=== PATIENT | male | born 1955 | race Caucasian/White ===

== ENCOUNTER 2023-07-17 07:38 | Emergency (ER) | payer SELFPAY ==
[2023-07-17 07:45] VITALS: BP 147/77; PULSE 56; RESP 18; TEMP 36.8; O2SAT 99; BMI 23.1
[2023-07-17] MEDS: BACITRACIN OINT 0.9 GM PCKT 1 APPLIC TOP (07:50)
--- NOTE | 2023-07-17 07:51 | ED.SKABFB ---
HPI - Skin/Abscess/Foreign Bdy General Chief complaint: Skin/Abscess/Foreign Body Stated complaint: sliver stuck in arm per pt Time Seen by Provider: 07/17/23 07:43 Source: patient Mode of arrival: Ambulatory Limitations: no limitations History of Present Illness HPI narrative: 68-year-old male here for evaluation of a piece of wood that is stuck in the palm of his right hand. He states he was working with some wood last evening. And a piece of the would get stuck in his hand. Attempted multiple times to remove it last evening but has been unable to. Review of Systems Constitutional Constitutional: Reports system reviewed and no additional complaints, except as documented Musculoskeletal Musculoskeletal: Reports system reviewed and no additional complaints, except as documented Integumentary/Breasts Skin/Breast: Reports system reviewed and no additional complaints, except as documented Patient History Social History Smoking Status: Unknown if ever smoked Smoking Status: Unknown if ever smoked alcohol intake frequency: other Substance Use Type: does not use Exam Initial Vital Signs Initial Vital Signs: Vital Signs Temperature 98.3 F 07/17/23 07:45 Pulse Rate 56 L 07/17/23 07:45 Respiratory Rate 18 07/17/23 07:45 Blood Pressure 147/77 H 07/17/23 07:45 Pulse Oximetry 99 07/17/23 07:45 Oxygen Delivery Method Room Air 07/17/23 07:45 Skin Other: There was a small puncture wound in the skin on the thenar eminence of the right hand. There was a foreign body felt under the skin. Procedures Foreign Body OTHER Foreign Body Removal Site: right and hand Description of foreign body: other (Would) Technique: manual removal Confirmed by:: direct visualization Course Orders Ordered: Discontinued Medications Bacitracin (Bacitracin Oint 0.9 Gm Pckt) 1 applic TOP NOW ONE Stop: 07/17/23 07:52 Vital Signs Vital signs: Vital Signs - 8 hr 07/17/23 07:45 Temperature 98.3 F Pulse Rate 56 L Respiratory Rate 18 Blood Pressure 147/77 H Pulse Oximetry 99 Oxygen Delivery Method Room Air MDM - Skin/Abscess/Foreign Bdy MDM Narrative Medical decision making narrative: A small area of the skin was numbed with lidocaine and a 2 cm piece of wood was removed without incident. The patient washed the wound. There was no signs of infection. Wheeze topical antibiotics. Patient was discharged home with return precautions. Discharge Plan Departure Patient Disposition: Home Clinical Impression: Foreign body in hand Activity Restrictions/Additional Instructions: Can wash your hands like normal. You can put topical antibiotic ointment over the area. Contact your primary doctor for a follow-up. Return to the emergency department for new symptoms. Stand Alone Forms: Patient Portal/API
== END 2023-07-17 07:58 | disposition home or self-care (01) ==
PROVIDERS: Emergency Provider Emergency Medicine
DX: S60.551A Superficial foreign body of right hand, initial encounter (principal)
CPT/HCPCS: 99282

== ENCOUNTER 2024-07-15 13:38 | Inpatient (IN) | payer BC, SELFPAY ==
[2024-07-15] VITALS (12 sets, daily range): BP systolic 160–206; BP diastolic 76–98; PULSE 53–82; RESP 16–17; TEMP 36.7–36.9; O2SAT 98–100; BMI 22.4
[2024-07-15 14:23] LABS: Add Manual Diff / Slide Review NO; Basophils Absolute Auto 100 /uL (0-100); Basophils Percent Auto 0.7 % (0-2); Eosinophils Absolute Auto 200 /uL (0-450); Eosinophils Percent Auto 2.8 % (2-4); Hematocrit 27.3 % (41-53); Hemoglobin 9.4 g/dL (13.5-17.5); Lymphocytes Absolute Auto 1400 /uL (1100-4500); Lymphocytes Percent Auto 17.3 % (25-40); Mean Corpuscular HGB Conc 34.5 % (30-36); Mean Corpuscular Hemoglobin 29.1 PG (26-34); Mean Corpuscular Volume 84.1 fL (80-100); Monocytes Absolute Auto 600 /uL (0-900); Monocytes Percent Auto 6.9 % (3-14); Neutrophils Absolute Auto 5800 /uL (1500-7000); Neutrophils Percent Auto 72.3 % (50-75); Platelet Count 165 X10^3/uL (150-400); Red Blood Cell Count 3.24 X10^6/uL (4.5-5.9); Red Cell Distribution Width 14.2 % (11.6-14.8); White Blood Cell Count 8.1 X10^3/uL (4.5-11.0)
[2024-07-15 14:34] LABS: Alanine Aminotransferase 19 IU/L (<50); Albumin 4.2 g/dL (3.5-5.0); Albumin Globulin Ratio 1.8 (1.0-2.8); Alkaline Phosphatase 38 U/L (38-126); Aspartate Aminotransferase 21 IU/L (17-59); BUN Creatinine Ratio 13.1 (6-22); Bilirubin Total 0.5 mg/dL (0.2-1.3); Blood Urea Nitrogen 54 mg/dL (9-20); Carbon Dioxide 26 mmol/L (22-32); Chloride 106 mmol/L (98-107); Estimated Glomerular Filt Rate 15 mL/min (>60); Globulin 2.3 g/dL (1.7-4.1); Glucose 118 mg/dL (70-99); HEMOLYSIS < 15 (0-50); Lipase 153 U/L (23-300); Potassium 4.2 mmol/L (3.4-5.1); Sodium 142 mmol/L (137-145); Total Protein 6.5 g/dL (6.3-8.2)
--- NOTE | 2024-07-15 16:19 | DI.US.S_ITS ---
PROCEDURE: US RENAL COMPLETE INDICATIONS: renal failure TECHNIQUE: Real-time scanning was performed of the kidneys and bladder, with image documentation. COMPARISON: None. FINDINGS: Kidneys: Kidneys are enlarged. Right kidney measures 13.0 cm long; left kidney measures 13.8 cm long. Bilateral renal cortical thinning. 7 mm on the right and 8 mm on the left. There is severe bilateral hydronephrosis. No intrarenal calculi. Bladder: Pre-void bladder volume is 852 mL. Post-void residual is 833 mL. Pre-void images demonstrate no intraluminal masses or stones. On pre-void images, neither ureteral jets are noted with color Doppler interrogation. (Of note, ureteral jets may not be detectable in up to 25% of cases due to insufficient differences in specific gravity between ureteral and bladder urine). Miscellaneous: No free pelvic fluid. The prostate gland measures 3.7 x 4.0 x 4.1 cm and median lobe hypertrophy likely protrudes into the bladder. Bladder mass is felt less likely but not excluded. IMPRESSION: Severe bilateral hydronephrosis, probably due to bladder outlet obstruction. Cross-sectional imaging of the urinary bladder and prostate and may be helpful. Dictated by: Monserrat Romano M.D. on 07/15/2024 at 17:27 Approved by: Monserrat Romano M.D. on 07/15/2024 at 17:30
[2024-07-15 16:42] LABS: Appearance Urine UA CLEAR; Bilirubin Urine UA NEGATIVE (NEGATIVE); Color Urine UA YELLOW; Glucose Urine UA NEGATIVE (Negative); Ketones Urine UA NEGATIVE (NEGATIVE); Leukocyte Esterase Urine UA NEGATIVE (NEGATIVE); Nitrite Urine UA NEGATIVE (Negative); Occult Blood Urine UA NEGATIVE (Negative); Protein Urine UA NEGATIVE (Negative); Specific Gravity Urine UA 1.015 (1.000-1.035); Urobilinogen Urine UA 0.2 E.U./dL (0.2); pH Urine UA 5.5 (4.5-8.0)
--- NOTE | 2024-07-15 16:46 | ED.RECABL ---
HPI - Recheck/Abnormal Lab/Rx General Chief Complaint: Recheck/Abnormal Lab/Rx Stated Complaint: Sent from [facility] results alarming Time Seen by Provider: 07/15/24 16:19 Source: patient Mode of arrival: Ambulatory History of Present Illness HPI narrative: Patient is a 69-year-old male presenting today with abnormal labs. He reports that he went to his primary care provider because he was having some sudden urinary incontinence. He has no abdominal pain no nausea no back pain. He does not really take any medications over the counter he does take an Excedrin for an occasional migraine that has been going on for about a month and a half but not taking it daily and not taking it multiple times a day. He avoids NSAIDs. Really he has absolutely no complaints. Related Data Home Medications Medication Instructions Recorded Confirmed No Known Home Medications 07/15/24 07/15/24 Allergies Allergy/AdvReac Type Severity Reaction Status Date / Time No Known Drug Allergies Allergy Verified 07/15/24 13:58 Patient History Smoking Status: Never smoker alcohol intake frequency: other Exam Initial Vital Signs Initial Vital Signs: Vital Signs Temperature 98.5 F 07/15/24 13:53 Pulse Rate 75 07/15/24 13:53 Respiratory Rate 17 07/15/24 13:53 Blood Pressure 206/98 H 07/15/24 13:53 Pulse Oximetry 99 07/15/24 13:53 Oxygen Delivery Method Room Air 07/15/24 13:53 GENERAL: Well-appearing, well-nourished and in no acute distress. HEENT: Head atraumatic,EOMI, pupils reactive, face symmetric, moist mucous membranes CARDIOVASCULAR: Regular rate and rhythm without murmurs, rubs or gallops. RESPIRATORY: Breath sounds equal bilaterally, no wheezes rales or rhonchi. ABDOMEN: Soft, no suprapubic pain no guarding no rebound : No CVA tenderness EXTREMITIES: Normal range of motion, no clubbing or edema. Neurovascularly intact NEUROLOGICAL: Alert and oriented x4.Normal gait and speech. Cranial nerves II through XII grossly intact. SKIN: Warm, dry, no laceration, no petechiae, no rashes or lesions. Course Orders Ordered: ED Orders 07/15/24 14:15 Complete Blood Count AUTO DIFF Stat Comprehensive Metabolic Panel Stat Lipase Stat Protein Creatinine Ratio Urine Stat Sodium Urine Random Stat UA Complete [Urinalysis and Microscopic] Stat 07/15/24 16:19 US renal complete Stat 07/15/24 19:00 BMP [Basic Metabolic Panel] Stat Acetaminophen (Acetaminophen 325 Mg Tablet) 650 mg PO Q6H PRN PRN Reason: Fever/Mild Pain (1-3) Sodium Chloride (Normal Saline 0.9%) 1,000 mls @ 1,000 mls/hr IV BOLUS ONE Stop: 07/15/24 18:23 Last Admin: 07/15/24 17:49 Dose: 1,000 mls/hr Sodium Chloride (Normal Saline 0.9%) 1,000 mls @ 100 mls/hr IV CONT DUANE Naloxone HCl (Naloxone 0.4 Mg/Ml Vial) 0.2 mg IV Q2MIN PRN PRN Reason: Opiate Reversal Ondansetron HCl (Ondansetron 4 Mg/2 Ml Inj) 4 mg IV NOW PRN PRN Reason: Nausea And Vomiting Ondansetron HCl (Ondansetron 4 Mg Odt) 4 mg PO NOW PRN PRN Reason: Nausea And Vomiting Discontinued Medications Lidocaine HCl (Lidocaine 2% (Glydo) 6 Ml Gel) 6 ml TOP NOW ONE Stop: 07/15/24 17:22 Last Admin: 07/15/24 17:29 Dose: 6 ml Vital Signs Vital signs: Vital Signs - 8 hr 07/15/24 13:53 07/15/24 15:07 07/15/24 15:30 Temperature 98.5 F Pulse Rate 75 56 L 56 L Respiratory Rate 17 Blood Pressure 206/98 H Pulse Oximetry 99 98 100 Oxygen Delivery Method Room Air 07/15/24 16:02 07/15/24 16:30 07/15/24 16:44 Temperature Pulse Rate 82 63 57 L Respiratory Rate Blood Pressure Pulse Oximetry 100 99 98 Oxygen Delivery Method 07/15/24 16:44 07/15/24 17:00 07/15/24 17:04 Temperature Pulse Rate 53 L 67 Respiratory Rate Blood Pressure 176/79 H Pulse Oximetry 98 98 Oxygen Delivery Method 07/15/24 17:04 07/15/24 17:30 07/15/24 17:30 Temperature Pulse Rate 53 L Respiratory Rate Blood Pressure 179/88 H 184/84 H Pulse Oximetry 99 Oxygen Delivery Method MDM - Recheck/Abnormal Lab/Rx Lab Data 07/15/24 14:15 07/15/24 14:15 Labs: Lab Results 07/15/24 07/15/24 Range/Units 14:15 14:15 WBC 8.1 (4.5-11.0) X10^3/uL RBC 3.24 L (4.5-5.9) X10^6/uL Hgb 9.4 L (13.5-17.5) g/dL Hct 27.3 L (41-53) % MCV 84.1 (80-100) fL MCH 29.1 (26-34) PG MCHC 34.5 (30-36) % RDW 14.2 (11.6-14.8) % Plt Count 165 (150-400) X10^3/uL Neut % (Auto) 72.3 (50-75) % Lymph % (Auto) 17.3 L (25-40) % [place] % (Auto) 6.9 (3-14) % Eos % (Auto) 2.8 (2-4) % Baso % (Auto) 0.7 (0-2) % Neut # (Auto) 5800 (5584-7166) /uL Lymph # (Auto) 1400 (0437-1757) /uL [place] # (Auto) 600 (0-900) /uL Eos # (Auto) 200 (0-450) /uL Baso # (Auto) 100 (0-100) /uL Sodium 142 (137-145) mmol/L Potassium 4.2 (3.4-5.1) mmol/L Chloride 106 (98-107) mmol/L Carbon Dioxide 26 (22-32) mmol/L BUN 54 H (9-20) mg/dL Creatinine 4.11 H (0.66-1.25) mg/dL Estimated GFR 15 L (>60) mL/min BUN/Creatinine Ratio 13.1 (6-22) Glucose 118 H (70-99) mg/dL Calcium 9.0 (8.4-10.2) mg/dL Total Bilirubin 0.5 (0.2-1.3) mg/dL AST 21 (17-59) IU/L ALT 19 (<50) IU/L Alkaline Phosphatase 38 (38-126) U/L Total Protein 6.5 (6.3-8.2) g/dL Albumin 4.2 (3.5-5.0) g/dL Globulin 2.3 (1.7-4.1) g/dL Albumin/Globulin Ratio 1.8 (1.0-2.8) Lipase 153 (23-300) U/L Urine Color Yellow Urine Appearance Clear Urine pH 5.5 (4.5-8.0) Ur Specific [place] 1.015 (1.000-1.035) Urine Protein Negative (Negative) Urine Glucose (UA) Negative (Negative) g/dL Urine Ketones Negative (NEGATIVE) Urine Occult Blood Negative (Negative) Urine Nitrate Negative (Negative) Urine Bilirubin Negative (NEGATIVE) Urine Urobilinogen 0.2 (0.2) E.U./dL Ur Leukocyte Esterase Negative (NEGATIVE) Urine RBC None seen (0-5/HPF) Urine WBC 0-1/hpf (0-5/HPF) Ur Squamous Epith Cells 0-1 /hpf (0-5/HPF) Urine Bacteria Occasional (0-1) (None) Ur Culture Indicated? Cult not indicated Vol Urine Centrifuged 10ml (spun) U Random Total Protein 19 H (0-12) mg/dL Ur Random Sodium 43 (30-90) mmol/L Urine Creatinine 50.83 Cancelled mg/dL Protein/Creatinin Ratio 0.37 GRAM/24H Urine Dip Bedside Urine Glucose Negative Bedside Urine Bilirubin - Negative Bedside Urine Ketone - Negative Urine Specific [place] 1.015 Bedside Urine Occult Blood - Negative Bedside Urine pH 6.0 Bedside Urine Protein - Negative Bedside Urine Urobilinogen - Negative Bedside Urine Nitrite - Negative Bedside Urine Leukocytes - Negative Esterase Imaging Data US renal: Radiologist's Impression: PROCEDURE: US RENAL COMPLETE INDICATIONS: renal failure TECHNIQUE: Real-time scanning was performed of the kidneys and bladder, with image documentation. COMPARISON: None. FINDINGS: Kidneys: Kidneys are enlarged. Right kidney measures 13.0 cm long; left kidney measures 13.8 cm long. Bilateral renal cortical thinning. 7 mm on the right and 8 mm on the left. There is severe bilateral hydronephrosis. No intrarenal calculi. Bladder: Pre-void bladder volume is 852 mL. Post-void residual is 833 mL. Pre-void images demonstrate no intraluminal masses or stones. On pre-void images, neither ureteral jets are noted with color Doppler interrogation. (Of note, ureteral jets may not be detectable in up to 25% of cases due to insufficient differences in specific gravity between ureteral and bladder urine). Miscellaneous: No free pelvic fluid. The prostate gland measures 3.7 x 4.0 x 4.1 cm and median lobe hypertrophy likely protrudes into the bladder. Bladder mass is felt less likely but not excluded. IMPRESSION: Severe bilateral hydronephrosis, probably due to bladder outlet obstruction. Cross-sectional imaging of the urinary bladder and prostate and may be helpful. Dictated by: Monserrat Romano M.D. on 07/15/2024 at 17:27 MDM Narrative Medical decision making narrative: Patient is a well-appearing 69-year-old male who presents today with abnormal lab feel you of elevated creatinine. He was found to have bladder outlet obstruction likely causing his GIACOMO. His potassium is within normal limits. He was in no pain. No flank pain or suprapubic pain. Boswell catheter is placed greater than 1 L has come out. Ultrasound confirms bladder outlet obstruction Blood work reviewed WBCs 8.1 hemoglobin 9.4 hematocrit 27.3 platelets 165 Sodium 142 potassium 4.2 chloride 106 carbon dioxide 26 BUN 54 creatinine 4.1 glucose 118 Liver enzymes bilirubin often normal limits Urinalysis negative for UTI Discussion with Dr. Stern hospitalist who kindly agrees to admission Discharge Plan Departure Patient Disposition: Admitted as Observation Clinical Impression: GIACOMO (acute kidney injury), Acute urinary obstruction Admit Date/Time: 07/15/24 17:48 Admit Provider: Bear Stern
[2024-07-15 16:48] LABS: Bacteria Urine Occasional (0-1); Creatinine Urine Random 50.83 mg/dL; Culture Indicated Urine Cult Not Indicated; Protein (Total) Urine Random 19 mg/dL (0-12); Protein Creatinine Ratio Urine 0.37 GRAM/24H; RBC Urine None Seen (0-5/HPF); Sodium Urine Random 43 mmol/L (30-90); Squamous Epithelial Cell Urine 0-1 /HPF (0-5/HPF); Urine Volume 10mL (spun); WBC Urine 0-1/HPF (0-5/HPF)
[2024-07-15] MEDS: LIDOCAINE 2% (GLYDO) 6 ML GEL TOP (17:29)
[2024-07-15] MEDS: SODIUM CHLORIDE 0.9% 1,000 ML 1000 ML IV (17:49)
--- NOTE | 2024-07-15 18:10 | P.HP_ITS ---
History of Present Illness History of Present Illness Date Patient Seen: 07/15/24 Time Patient Seen: 18:31 Chief complaint: Sent from [place] Lab results alarming Narrative: Patient was a 69-year-old male who presents from [place] with hypertension and acute kidney injury. He was otherwise healthy and does not take any medications. Moved to [place] 2 years ago from [facility]. He lives alone and has 3 cats. He was had incontinent episodes for about 1 month and went to the clinic 2 days ago and had blood tests obtained. He was called back because of evidence of GIACOMO with a creatinine of 4.0 and sent to the emergency department. The patient was found to have a large volume of urine in his bladder and a catheter was placed in the emergency department. He was hypertensive, but denies a history of hypertension. He also denies a history of urinary problems, known BPH, or dysuria. He was no knowledge of previously being hypertensive either. A renal ultrasound revealed severe bilateral hydronephrosis. [facility] Social History Smoking Status: Never smoker Meds Home Medications and Allergies Home Medications Medication Instructions Recorded Confirmed Type No Known Home Medications 07/15/24 07/15/24 History Allergies Allergy/AdvReac Type Severity Reaction Status Date / Time No Known Drug Allergies Allergy Verified 07/15/24 13:58 Review of Systems Review of Systems Narrative: All else reviewed and otherwise unremarkable except as noted in the history and physical. Exam Vital Signs (past 8 hours): - 07/15/24 13:53 07/15/24 15:07 07/15/24 15:30 Temperature 98.5 F Pulse Rate 75 56 L 56 L Respiratory Rate 17 Blood Pressure 206/98 H Pulse Oximetry 99 98 100 Oxygen Delivery Method Room Air 07/15/24 16:02 07/15/24 16:30 07/15/24 16:44 Temperature Pulse Rate 82 63 57 L Respiratory Rate Blood Pressure Pulse Oximetry 100 99 98 Oxygen Delivery Method 07/15/24 16:44 07/15/24 17:00 07/15/24 17:04 Temperature Pulse Rate 53 L 67 Respiratory Rate Blood Pressure 176/79 H Pulse Oximetry 98 98 Oxygen Delivery Method 07/15/24 17:04 07/15/24 17:30 07/15/24 17:30 Temperature Pulse Rate 53 L Respiratory Rate Blood Pressure 179/88 H 184/84 H Pulse Oximetry 99 Oxygen Delivery Method 07/15/24 18:00 07/15/24 18:01 07/15/24 18:01 Temperature Pulse Rate 60 55 L Respiratory Rate Blood Pressure 205/90 H Pulse Oximetry 98 98 Oxygen Delivery Method Oxygen Delivery Method Room Air Narrative Exam Narrative: NAD, alert and oriented, fluent speech, calm. Normocephalic skull, EOMI, anicteric sclera, symmetric pupils. Oropharynx unremarkable, no droop. Neck supple, midline trachea, no adenopathy. Lungs clear, normal rate and effort. Heart regular, no murmur gallop or rub. Abdomen is soft, non distended and non tender. Extremities are free of edema. Skin is free of rash or lesions. Joints are not swollen or deformed. Judgment appears to be normal. Boswell catheter in place. Objective Imaging Renal ultrasound:: Radiologist's impression: Severe bilateral hydronephrosis, probably due to bladder outlet obstruction. Cross-sectional imaging of the urinary bladder and prostate and may be helpful. Labs 07/15/24 14:15 07/15/24 14:15 Labs: Laboratory Results - last 24 hr 07/15/24 07/15/24 14:15 14:15 WBC 8.1 RBC 3.24 L Hgb 9.4 L Hct 27.3 L MCV 84.1 MCH 29.1 MCHC 34.5 RDW 14.2 Plt Count 165 Neut % (Auto) 72.3 Lymph % (Auto) 17.3 L [place] % (Auto) 6.9 Eos % (Auto) 2.8 Baso % (Auto) 0.7 Neut # (Auto) 5800 Lymph # (Auto) 1400 [place] # (Auto) 600 Eos # (Auto) 200 Baso # (Auto) 100 Sodium 142 Potassium 4.2 Chloride 106 Carbon Dioxide 26 BUN 54 H Creatinine 4.11 H Estimated GFR 15 L BUN/Creatinine Ratio 13.1 Glucose 118 H Calcium 9.0 Total Bilirubin 0.5 AST 21 ALT 19 Alkaline Phosphatase 38 Total Protein 6.5 Albumin 4.2 Globulin 2.3 Albumin/Globulin Ratio 1.8 Lipase 153 Urine Color Yellow Urine Appearance Clear Urine pH 5.5 Ur Specific [place] 1.015 Urine Protein Negative Urine Glucose (UA) Negative Urine Ketones Negative Urine Occult Blood Negative Urine Nitrate Negative Urine Bilirubin Negative Urine Urobilinogen 0.2 Ur Leukocyte Esterase Negative Urine RBC None seen Urine WBC 0-1/hpf Ur Squamous Epith Cells 0-1 /hpf Urine Bacteria Occasional (0-1) Ur Culture Indicated? Cult not indicated Vol Urine Centrifuged 10ml (spun) U Random Total Protein 19 H Ur Random Sodium 43 Urine Creatinine 50.83 Cancelled Protein/Creatinin Ratio 0.37 Assessment & Plan Assessment & Plan narrative: 1. Postobstructive kidney failure, present on admission and active. 2. Bladder outlet obstruction presumably from BPH, present on admission and active. 3. Hypertension which may be situational or chronic and undiagnosed, present on admission and active. Plan: -Boswell catheter drainage and follow creatinine overnight. -telemetry. -start Flomax. -start amlodipine. Full resuscitation. Anticipate 1 night in the hospital, supports observation status. Time-Based Coding :: 35 min spent with patient and on the chart (including review of chart, obtaining history, exam, reviewing outside data, placing orders, documenting exam and treatment plan, and counseling patient) on 07/15/24. Quality MIPS - Admit The patient?s Advance Care plan is not present because I confirmed today that the patient does not wish or was not able to name a surrogate decision maker or provide an Advance Care Plan.: Yes MIPS - Meds 'Current medications' to include all prescriptions, [id number] products, herbals, cannabis/cannabidiol products, and vitamin/mineral/dietary (nutritional) supplements. I have utilized all available resources to obtain, update, or review the patient?s current medications. [If Yes, STOP here]: Yes
[2024-07-15] MEDS: SODIUM CHLORIDE 0.9% 1,000 ML 100 ML IV (19:02)
[2024-07-15] MEDS: AMLODIPINE 5 MG TABLET 2.5 MG PO (19:04)
[2024-07-15] MEDS: TAMSULOSIN 0.4 MG CAPSULE PO (19:04)
[2024-07-15 19:32] LABS: BUN Creatinine Ratio 13.5 (6-22); Blood Urea Nitrogen 54 mg/dL (9-20); Calcium 9.3 mg/dL (8.4-10.2); Carbon Dioxide 25 mmol/L (22-32); Chloride 107 mmol/L (98-107); Estimated Glomerular Filt Rate 16 mL/min (>60); Glucose 102 mg/dL (70-99); HEMOLYSIS < 15 (0-50); Potassium 4.5 mmol/L (3.4-5.1); Sodium 142 mmol/L (137-145)
[2024-07-15] MEDS: ACETAMINOPHEN 325 MG TABLET 650 MG PO (21:50)
[2024-07-15] MEDS: OXYCODONE IR 5 MG TABLET PO (21:51)
[2024-07-15] MEDS: CYCLOBENZAPRINE 10 MG TABLET PO (22:58)
[2024-07-16] MEDS: ACETAMINOPHEN 325 MG TABLET 650 MG PO (04:58)
[2024-07-16 05:13] VITALS: BP 137/75; PULSE 61; RESP 16; TEMP 36.6; O2SAT 96
[2024-07-16] MEDS: SODIUM CHLORIDE 0.9% 1,000 ML 100 ML IV (05:51)
[2024-07-16 06:33] LABS: BUN Creatinine Ratio 13.3 (6-22); Blood Urea Nitrogen 49 mg/dL (9-20); Calcium 8.8 mg/dL (8.4-10.2); Carbon Dioxide 26 mmol/L (22-32); Chloride 105 mmol/L (98-107); Estimated Glomerular Filt Rate 17 mL/min (>60); Glucose 134 mg/dL (70-99); HEMOLYSIS < 15 (0-50); Sodium 140 mmol/L (137-145)
--- NOTE | 2024-07-16 07:32 | PM.PN.1 ---
Subjective Subjective Interval history: S: He was tolerating his catheter. He developed a headache which improved with 1 oxycodone and coffee this morning. No other complaints. Exam Vital Signs (past 8 hours): - 07/16/24 05:13 Temperature 97.8 F Pulse Rate 61 Respiratory Rate 16 Blood Pressure 137/75 Pulse Oximetry 96 Oxygen Delivery Method Room Air Oxygen Flow Rate 0 Narrative Exam Narrative: NAD, alert and oriented. Fluent speech. Lungs are clear, normal rate and effort. Heart is regular, no murmur gallop or rub. Abdomen is soft, non distended. Extremities are free of edema. Boswell catheter. Objective Labs 07/15/24 14:15 07/16/24 05:20 Labs: Laboratory Results - last 24 hr 07/15/24 07/15/24 07/15/24 14:15 14:15 19:07 WBC 8.1 RBC 3.24 L Hgb 9.4 L Hct 27.3 L MCV 84.1 MCH 29.1 MCHC 34.5 RDW 14.2 Plt Count 165 Neut % (Auto) 72.3 Lymph % (Auto) 17.[address] [place] % (Auto) 6.9 Eos % (Auto) 2.8 Baso % (Auto) 0.7 Neut # (Auto) 5800 Lymph # (Auto) 1400 [place] # (Auto) 600 Eos # (Auto) 200 Baso # (Auto) 100 Sodium 142 142 Potassium 4.2 4.5 Chloride 106 107 Carbon Dioxide 26 25 BUN 54 H 54 H Creatinine 4.11 H 3.99 H Estimated GFR 15 L 16 L BUN/Creatinine Ratio 13.1 13.5 Glucose 118 H 102 H Calcium 9.0 9.3 Total Bilirubin 0.5 AST 21 ALT 19 Alkaline Phosphatase 38 Total Protein 6.5 Albumin 4.2 Globulin 2.3 Albumin/Globulin Ratio 1.8 Lipase 153 Urine Color Yellow Urine Appearance Clear Urine pH 5.5 Ur Specific [place] 1.015 Urine Protein Negative Urine Glucose (UA) Negative Urine Ketones Negative Urine Occult Blood Negative Urine Nitrate Negative Urine Bilirubin Negative Urine Urobilinogen 0.2 Ur Leukocyte Esterase Negative Urine RBC None seen Urine WBC 0-1/hpf Ur Squamous Epith Cells 0-1 /hpf Urine Bacteria Occasional (0-1) Ur Culture Indicated? Cult not indicated Vol Urine Centrifuged 10ml (spun) U Random Total Protein 19 H Ur Random Sodium 43 Urine Creatinine 50.83 Cancelled Protein/Creatinin Ratio 0.37 07/16/24 05:20 WBC RBC Hgb Hct MCV MCH MCHC RDW Plt Count Neut % (Auto) Lymph % (Auto) [place] % (Auto) Eos % (Auto) Baso % (Auto) Neut # (Auto) Lymph # (Auto) [place] # (Auto) Eos # (Auto) Baso # (Auto) Sodium 140 Potassium 4.0 Chloride 105 Carbon Dioxide 26 BUN 49 H Creatinine 3.68 H Estimated GFR 17 L BUN/Creatinine Ratio 13.3 Glucose 134 H Calcium 8.8 Total Bilirubin AST ALT Alkaline Phosphatase Total Protein Albumin Globulin Albumin/Globulin Ratio Lipase Urine Color Urine Appearance Urine pH Ur Specific [place] Urine Protein Urine Glucose (UA) Urine Ketones Urine Occult Blood Urine Nitrate Urine Bilirubin Urine Urobilinogen Ur Leukocyte Esterase Urine RBC Urine WBC Ur Squamous Epith Cells Urine Bacteria Ur Culture Indicated? Vol Urine Centrifuged U Random Total Protein Ur Random Sodium Urine Creatinine Protein/Creatinin Ratio PFSH Social History household members: none Smoking Status: Never smoker alcohol intake: current Assessment & Plan Assessment & Plan narrative: 1. Postobstructive kidney failure, present on admission and active. 2. Bladder outlet obstruction presumably from BPH, present on admission and active. 3. Hypertension which may be situational or chronic and undiagnosed, present on admission and active. Plan: -Boswell catheter drainage. -NS at 125 ml/hr. -dc telemetry. -continue Flomax. -increase amlodipine to 5 QD. Full resuscitation. He requires another midnight of care in the hospital, we will monitor his renal function with Boswell catheter a continue Flomax. Anticipate discharge with a leg bag and Urology follow up for a voiding trial in 1-2 weeks. Time-Based Coding :: [TOTAL MINUTES] spent with patient and on the chart (including review of chart, obtaining history, exam, reviewing outside data, placing orders, documenting exam and treatment plan, and counseling patient) on [DATE]. Quality VTE Deep Vein Thrombosis/Pulmonary Embolism Present on Admission: No
[2024-07-16 09:00] VITALS: BP 156/86; PULSE 65; RESP 15; TEMP 36.5; O2SAT 98
[2024-07-16] MEDS: CYCLOBENZAPRINE 10 MG TABLET PO (09:03)
--- NOTE | 2024-07-16 09:34 | CM.DANOTE ---
Addendum entered by SHANTI Manuel 07/16/24 11:05: ADD: Per SRINATH Montanze, pt active with [employer] insurance (unclear if this is a Medicare plan) and received a call from pt's insurance [employer] ([phone]) who will assist with helping pt get approved for outpt Urology f/u and can assist with discharge planning needs. BF Original Note: Patient is a 69 yo male who was admitted on 07/15/24 for GIACOMO issues. Pt has [employer] for insurance and his PCP is at the [facility] on [address]. EMR was reviewed. Per , pt with abnormal labs from the [facility] and recommendation to come to the ER and was admitted for GIACOMO, severe bilateral hydronephrosis and bladder obstruction and ceballos placed. Likely another 1-3 days pending labs. SW met bedside with pt and explained role and he confirms he lives at home alone on [address] with 3 cats and is very active and independent at baseline, difficult for patient to remain still and in the hospital. Pt does not use DME for ambulation and drove himself to the hospital and vehicle is in the parking lot. Pt does not have any local family and no formal POA at this time but does have friends on [place] that will help with his cats at home. Pt denies any hx of HH or SNF and preference is home at discharge and plans to drive himself and will likely need Priority Boarding Pass if he can't make a reservation. arrived bedside and also explained to pt the possibility of needing to d/c with ceballos and have outpt f/u with Urology. Pt hopeful not to need ceballos at d/c but has had his urinary issues for a few months and likely will take a couple weeks to resolve urinary retension. Pt acknowledges understanding. Plan: SW to follow for likely d/c home in a couple days via pt's own POV and outpt f/u with Urology and possible new ceballos at d/c. SHANTI Manuel Discharge Planning/Care Management CM Discharge Assessment Start: 07/15/24 18:20 Freq: Status: Active Protocol: Document 07/16/24 09:33 BF (Rec: 07/16/24 09:34 BF [id number]) Discharge Planning Assessment Assigned Cane Furniture Maker SHANTI Rodgers DPOA/Assigned Designee Name none Advance Directives? No Advance Directives on File No History Provided By Patient,Medical Record Has Patient been admitted in last 30 No days? Prior Living Arrangements House Household Members none Type of transporation used prior to Drives own vehicle admit Comment Has own vehicle in parking lot Independent with ADL's Yes Is patient alert and oriented? Yes Caregiver for Another No Barriers to Discharge No Discharge Plan Home Transportation Arrangement Has own vehicle in parking lot , will likely need Priority Board Pass Referrals Initiated Other Additional Comment Likely will need f/u with Urology at d/c Whiteboard Updated in Patient Room with Yes name and ext. # of Cane Furniture Maker Review Status In Process Please Provide Date Initial DC 07/16/24 Assessment Was Performed Next Review Type Continued Stay Review
[2024-07-16] MEDS: SODIUM CHLORIDE 0.9% 1,000 ML 125 ML IV (10:00)
[2024-07-16] MEDS: AMLODIPINE 5 MG TABLET PO (12:23)
[2024-07-16 13:00] VITALS: BP 160/91; PULSE 84; RESP 16; TEMP 36.7; O2SAT 97
[2024-07-16 15:36] LABS: BUN Creatinine Ratio 12.5 (6-22); Blood Urea Nitrogen 42 mg/dL (9-20); Calcium 8.5 mg/dL (8.4-10.2); Carbon Dioxide 27 mmol/L (22-32); Chloride 104 mmol/L (98-107); Estimated Glomerular Filt Rate 19 mL/min (>60); Glucose 149 mg/dL (70-99); HEMOLYSIS < 15 (0-50); Potassium 3.7 mmol/L (3.4-5.1); Sodium 139 mmol/L (137-145)
[2024-07-16 17:00] VITALS: BP 117/63; PULSE 86; RESP 16; TEMP 36.8; O2SAT 95
[2024-07-16 19:50] VITALS: BP 119/66; PULSE 76; RESP 18; TEMP 36.9; O2SAT 95
[2024-07-17] VITALS: BP 135/73; PULSE 73; RESP 18; TEMP 36.6; O2SAT 96
[2024-07-17 04:00] VITALS: BP 145/73; PULSE 60; RESP 18; TEMP 36.3; O2SAT 94
[2024-07-17] MEDS: ACETAMINOPHEN 325 MG TABLET 650 MG PO (04:26)
[2024-07-17] MEDS: CYCLOBENZAPRINE 10 MG TABLET PO (04:26)
[2024-07-17 04:43] LABS: BUN Creatinine Ratio 14.4 (6-22); Blood Urea Nitrogen 47 mg/dL (9-20); Calcium 8.7 mg/dL (8.4-10.2); Carbon Dioxide 25 mmol/L (22-32); Chloride 108 mmol/L (98-107); Estimated Glomerular Filt Rate 20 mL/min (>60); Glucose 134 mg/dL (70-99); HEMOLYSIS < 15 (0-50); Sodium 139 mmol/L (137-145)
--- NOTE | 2024-07-17 07:26 | P.PN_ITS ---
Subjective Subjective Interval history: Summary: Patient was a 69-year-old male who presents from [place] with hypertension and acute kidney injury. He was otherwise healthy and does not take any medications. Moved to [place] 2 years ago from [facility]. He lives alone and has 3 cats. He was had incontinent episodes for about 1 month and went to the clinic 2 days ago and had blood tests obtained. He was called back because of evidence of GIACOMO with a creatinine of 4.0 and sent to the emergency department. The patient was found to have a large volume of urine in his bladder and a catheter was placed in the emergency department. He was hypertensive, but denies a history of hyperte 07/17: Some improvement in creatinine with a Boswell catheter. IV fluids continued. Flomax started. S: He feels fine. No pain, or dyspnea. He was comfortable being here longer for his renal function to improve. Exam Vital Signs (past 8 hours): - 07/17/24 00:00 07/17/24 04:00 Temperature 97.8 F 97.4 F L Pulse Rate 73 60 Respiratory Rate 18 18 Blood Pressure 135/73 145/73 H Pulse Oximetry 96 94 Oxygen Flow Rate 0 0 Oxygen Delivery Method Room Air Oxygen Flow Rate 0 Narrative Exam Narrative: NAD, alert and oriented. Fluent speech. Lungs are clear, normal rate and effort. Heart is regular, no murmur gallop or rub. Abdomen is soft, non distended. Extremities are free of edema. Boswell in place. Objective Imaging Renal US:: Radiologist's impression: Renal ultrasound:: Radiologist's impression: Severe bilateral hydronephrosis, probably due to bladder outlet obstruction. Cross-sectional imaging of the urinary bladder and prostate and may be helpful. Labs 07/15/24 14:15 07/17/24 04:10 Labs: Laboratory Results - last 24 hr 07/16/24 07/17/24 15:18 04:10 Sodium 139 139 Potassium 3.7 4.0 Chloride 104 108 H Carbon Dioxide 27 25 BUN 42 H 47 H Creatinine 3.35 H 3.26 H Estimated GFR 19 L 20 L BUN/Creatinine Ratio 12.5 14.4 Glucose 149 H 134 H Calcium 8.5 8.7 PFSH Social History household members: none Smoking Status: Never smoker alcohol intake: current Assessment & Plan Assessment & Plan narrative: 1. Postobstructive kidney failure, present on admission and active. 2. Bladder outlet obstruction presumably from BPH, present on admission and active. 3. Hypertension which may be situational or chronic and undiagnosed, present on admission and active. Plan: -Boswell catheter drainage. -NS at 125 ml/hr. -dc telemetry. -continue Flomax. -increased amlodipine to 5 QD. No other changes to this plan for today. We will continue to monitor for another 24 hours to see if renal function improves. It was possible he has a history of subacute or more chronic hypertension although he was never heard this before. It was also probable possible he was a degree of chronic kidney disease in addition to his acute kidney injury. Anticipate discharge in the next 1-2 days with a leg bag and outpatient follow up with Urology for a voiding trial and/or other management of his retention. Full resuscitation. He requires another midnight of care in the hospital, we will monitor his renal function with Boswell catheter a continue Flomax. Anticipate discharge with a leg bag and Urology follow up for a voiding trial in 1-2 weeks. Time-Based Coding :: [TOTAL MINUTES] spent with patient and on the chart (including review of chart, obtaining history, exam, reviewing outside data, placing orders, documenting exam and treatment plan, and counseling patient) on [DATE]. Quality VTE Deep Vein Thrombosis/Pulmonary Embolism Present on Admission: No
[2024-07-17 08:00] VITALS: BP 152/87; PULSE 64; RESP 15; TEMP 36.3; O2SAT 97
[2024-07-17] MEDS: AMLODIPINE 5 MG TABLET PO ×2 (08:04→20:00)
--- NOTE | 2024-07-17 12:24 | CM.DPNOTE ---
DCP Cont Reviewed chart. Patient discussed in multidisciplinary rounds. Patient remains hypertensive. PARISH 07/18. Patient expected to discharge home w/ceballos with close follow up with urology. Plan remains discharge home w/family w/close outpatient follow up. CM team following clinical course closely in case any discharge needs or concerns arise. IVA
[2024-07-17] MEDS: LIDOCAINE 5% PATCH 1 EACH TOP (15:20)
[2024-07-17] MEDS: SODIUM CHLORIDE 0.9% 1,000 ML 125 ML IV (15:20)
[2024-07-17 16:00] VITALS: BP 157/92; PULSE 83; RESP 18; TEMP 36.6; O2SAT 97
[2024-07-17 20:00] VITALS: BP 140/78; PULSE 90; RESP 17; TEMP 36.8; O2SAT 95
[2024-07-17] MEDS: SODIUM CHLORIDE 0.9% FLUSH 10 ML IV (20:42)
[2024-07-18 06:41] LABS: BUN Creatinine Ratio 14.1 (6-22); Blood Urea Nitrogen 44 mg/dL (9-20); Calcium 8.6 mg/dL (8.4-10.2); Carbon Dioxide 24 mmol/L (22-32); Chloride 107 mmol/L (98-107); Estimated Glomerular Filt Rate 21 mL/min (>60); Glucose 123 mg/dL (70-99); HEMOLYSIS < 15 (0-50); Sodium 139 mmol/L (137-145)
[2024-07-18 08:55] VITALS: BP 152/73; PULSE 72; RESP 16; TEMP 35.9; O2SAT 98
[2024-07-18] MEDS: LIDOCAINE 5% PATCH 1 EACH TOP (09:49)
[2024-07-18] MEDS: AMLODIPINE 5 MG TABLET 10 MG PO (09:49)
[2024-07-18] MEDS: SODIUM CHLORIDE 0.9% 1,000 ML 125 ML IV ×2 (16:06→23:57)
--- NOTE | 2024-07-18 16:36 | P.PN_ITS ---
Subjective Subjective Date Patient Seen: 07/18/24 Interval history: Chief complaint: Obstructive uropathy and urinary incontinence with GIACOMO History of present illness: 69-year-old male who presents from [place] with hypertension and acute kidney injury. He was otherwise healthy and does not take any medications. Moved to [place] 2 years ago from [facility], [place]. He lives alone and has 3 cats. He was had incontinent episodes for about 1 month and went to the clinic 2 days ago and had blood tests obtained. He was called back because of evidence of GIACOMO with a creatinine of 4.0 and sent to the emergency department. The patient was found to have a large volume of urine in his bladder and a catheter was placed in the emergency department. He was hypertensive, but denies a history of hyperte 07/17: Some improvement in creatinine with a Boswell catheter. IV fluids continued. Flomax started. No pain, or dyspnea. He was comfortable being here longer for his renal function to improve. 07/18: No complaints BUN is 44 creatinine is 3.13 has good urine output 1. Postobstructive kidney failure, present on admission and active. 2. Bladder outlet obstruction presumably from BPH, present on admission and active. 3. Hypertension which may be situational or chronic and undiagnosed, present on admission and active. Plan: -Boswell catheter drainage. -NS at 125 ml/hr. -dc telemetry. -continue Flomax. -increased amlodipine to 5 QD. We will need referral to a urologist and fixed wing aircraft flight mechanic upon discharge in the next 1-2 days with a leg bag and outpatient follow up with Urology for a voiding trial and/or other management of his retention. Full resuscitation. He requires another midnight of care in the hospital, we will monitor his renal function with Boswell catheter a continue Flomax. Anticipate discharge with a leg bag and Urology follow up for a voiding trial in 1-2 weeks. Time-Based Coding :: 35 minutes spent with patient and on the chart (including review of chart, obtaining history, exam, reviewing outside data, placing orders, documenting exam and treatment plan, and counseling patient) . Exam Vital Signs (past 8 hours): - 07/18/24 08:55 Temperature 96.7 F L Pulse Rate 72 Respiratory Rate 16 Blood Pressure 152/73 H Pulse Oximetry 98 Oxygen Flow Rate 0 Oxygen Delivery Method Room Air Oxygen Flow Rate 0 Objective Labs 07/15/24 14:15 07/18/24 05:50 Labs: Laboratory Results - last 24 hr 07/18/24 05:50 Sodium 139 Potassium 4.0 Chloride 107 Carbon Dioxide 24 BUN 44 H Creatinine 3.13 H Estimated GFR 21 L BUN/Creatinine Ratio 14.1 Glucose 123 H Calcium 8.6 PFSH Social History household members: none Smoking Status: Never smoker alcohol intake: current Assessment & Plan Time-Based Coding :: [TOTAL MINUTES] spent with patient and on the chart (including review of chart, obtaining history, exam, reviewing outside data, placing orders, documenting exam and treatment plan, and counseling patient) on [DATE]. Quality VTE Deep Vein Thrombosis/Pulmonary Embolism Present on Admission: No
[2024-07-18] MEDS: CYCLOBENZAPRINE 10 MG TABLET PO (20:37)
[2024-07-18 22:00] VITALS: BP 144/93; PULSE 83; RESP 16; TEMP 36.3; O2SAT 98
[2024-07-19] MEDS: ACETAMINOPHEN 325 MG TABLET 650 MG PO (03:35)
[2024-07-19 05:26] LABS: BUN Creatinine Ratio 15.3 (6-22); Blood Urea Nitrogen 42 mg/dL (9-20); Calcium 8.7 mg/dL (8.4-10.2); Carbon Dioxide 23 mmol/L (22-32); Chloride 106 mmol/L (98-107); Estimated Glomerular Filt Rate 24 mL/min (>60); Glucose 142 mg/dL (70-99); HEMOLYSIS < 15 (0-50); Potassium 4.1 mmol/L (3.4-5.1); Sodium 137 mmol/L (137-145)
[2024-07-19] MEDS: LACTULOSE 20 GM/30 ML SOLUTION PO ×2 (09:55→15:10)
[2024-07-19] MEDS: AMLODIPINE 5 MG TABLET 10 MG PO (09:55)
[2024-07-19] MEDS: LIDOCAINE 5% PATCH 1 EACH TOP (09:55)
[2024-07-19] MEDS: SODIUM CHLORIDE 0.9% 1,000 ML 125 ML IV ×2 (09:55→16:41)
--- NOTE | 2024-07-19 12:00 | CM.DPNOTE ---
DCP Cont Reviewed chart. Patient discussed in multidisciplinary rounds. Discharge anticipated today. Plan remains discharge home w/close outpatient follow up with urology. Patient may benefit from a priority board pass in order to make it home to [place] in a timely manner, depending on available reservations. CM team following clinical course closely. IVA
[2024-07-19 15:00] VITALS: BP 132/92; PULSE 85; RESP 16; TEMP 36.5; O2SAT 97
--- NOTE | 2024-07-19 17:33 | P.PN_ITS ---
Subjective Subjective Date Patient Seen: 07/19/24 Interval history: Chief complaint: Obstructive uropathy and urinary incontinence with GIACOMO History of present illness: 69-year-old male who presents from [place] with hypertension and acute kidney injury. He was otherwise healthy and does not take any medications. Moved to [place] 2 years ago from [facility]. He lives alone and has 3 cats. He was had incontinent episodes for about 1 month and went to the clinic 2 days ago and had blood tests obtained. He was called back because of evidence of GIACOMO with a creatinine of 4.0 and sent to the emergency department. The patient was found to have a large volume of urine in his bladder and a catheter was placed in the emergency department. He was hypertensive, but denies a history of hyperte 07/17: Some improvement in creatinine with a Boswell catheter. IV fluids continued. Flomax started. No pain, or dyspnea. He was comfortable being here longer for his renal function to improve. 07/18: No complaints BUN is 44 creatinine is 3.13 has good urine output 07/19: Continues to have good urine output actually has increased creatinine has decreased to 2.75 we will continue 1 more day of IV fluids and for and creatinine and discharge in the morning patient will need a follow-up appointment with both Urology and Nephrology 1. Postobstructive kidney failure, present on admission and active. 2. Bladder outlet obstruction presumably from BPH, present on admission and active. 3. Hypertension which may be situational or chronic and undiagnosed, present on admission and active. Plan: -Boswell catheter drainage. -NS at 125 ml/hr. -dc telemetry. -continue Flomax. -increased amlodipine to 5 QD. We will need referral to a urologist and horticultural technical officer upon discharge in the next 1-2 days with a leg bag and outpatient follow up with Urology for a voiding trial and/or other management of his retention. Full resuscitation. He requires another midnight of care in the hospital, we will monitor his renal function with Boswell catheter a continue Flomax. Anticipate discharge with a leg bag and Urology follow up for a voiding trial in 1-2 weeks. Time-Based Coding :: 35 minutes spent with patient and on the chart (including review of chart, obtaining history, exam, reviewing outside data, placing orders, documenting exam and treatment plan, and counseling patient) . Exam Vital Signs (past 8 hours): - 07/19/24 15:00 Temperature 97.7 F Pulse Rate 85 Respiratory Rate 16 Blood Pressure 132/92 H Pulse Oximetry 97 Oxygen Flow Rate 0 Oxygen Delivery Method Room Air Oxygen Flow Rate 0 Objective Labs 07/15/24 14:15 07/19/24 04:44 Labs: Laboratory Results - last 24 hr 07/19/24 04:44 Sodium 137 Potassium 4.1 Chloride 106 Carbon Dioxide 23 BUN 42 H Creatinine 2.75 H Estimated GFR 24 L BUN/Creatinine Ratio 15.3 Glucose 142 H Calcium 8.7 PFSH Social History household members: none Smoking Status: Never smoker alcohol intake: current Assessment & Plan Time-Based Coding :: [TOTAL MINUTES] spent with patient and on the chart (including review of chart, obtaining history, exam, reviewing outside data, placing orders, documenting exam and treatment plan, and counseling patient) on [DATE]. Quality VTE Deep Vein Thrombosis/Pulmonary Embolism Present on Admission: No
[2024-07-19 20:00] VITALS: BP 144/84; PULSE 89; RESP 19; TEMP 36.7; O2SAT 97
[2024-07-20] MEDS: SODIUM CHLORIDE 0.9% 1,000 ML 125 ML IV (00:10)
[2024-07-20] MEDS: LIDOCAINE 5% PATCH 1 EACH TOP (07:47)
[2024-07-20] MEDS: AMLODIPINE 5 MG TABLET 10 MG PO (07:47)
[2024-07-20 08:00] VITALS: BP 150/86; PULSE 76; RESP 16; TEMP 36.4; O2SAT 98
--- NOTE | 2024-07-20 08:07 | PM.DS.1 ---
History of Present Illness History of Present Illness Date Patient Seen: 07/20/24 Chief complaint: Sent from [place] Lab results alarming Narrative: Chief complaint: Obstructive uropathy and urinary incontinence with GIACOMO History of present illness: 69-year-old male who presents from [place] with hypertension and acute kidney injury. He was otherwise healthy and does not take any medications. Moved to [place] 2 years ago from [facility]. He lives alone and has 3 cats. He was had incontinent episodes for about 1 month and went to the clinic 2 days ago and had blood tests obtained. He was called back because of evidence of GIACOMO with a creatinine of 4.0 and sent to the emergency department. The patient was found to have a large volume of urine in his bladder and a catheter was placed in the emergency department. He was hypertensive, but denies a history of hyperte 07/17: Some improvement in creatinine with a Boswell catheter. IV fluids continued. Flomax started. No pain, or dyspnea. He was comfortable being here longer for his renal function to improve. 07/18: No complaints BUN is 44 creatinine is 3.13 has good urine output 07/19: Continues to have good urine output actually has increased creatinine has decreased to 2.75 we will continue 1 more day of IV fluids and for and creatinine and discharge in the morning patient will need a follow-up appointment with both Urology and Nephrology 07/20: BUN creatinine has improved 38/2.56 good urine output patient fitted with leg bag with replacements and instructions 1. Postobstructive kidney failure, present on admission and active. 2. Bladder outlet obstruction presumably from BPH, present on admission and active. 3. Hypertension which may be situational or chronic and undiagnosed, present on admission and active. Plan: -Boswell catheter drainage. -continue 3-4 L of water intake a day We will need referral to a urologist and plaster and stucco worker upon discharge in the next 1-2 days with a leg bag and outpatient follow up with Urology for a voiding trial and/or other management of his retention. Discharge Providers Provider Date of admission: 07/15/24 17:48 Discharge Date: 07/20/24 Primary care physician: Aj Hernández MD Discharge provider: Graham Marinelli MD Exam Vital Signs (past 8 hours): - 07/20/24 08:00 Temperature 97.6 F Pulse Rate 76 Respiratory Rate 16 Blood Pressure 150/86 H Pulse Oximetry 98 Oxygen Flow Rate 0 Oxygen Delivery Method Room Air Oxygen Flow Rate 0 Objective Labs 07/15/24 14:15 07/20/24 08:25 PFSH Social History household members: none Smoking Status: Never smoker alcohol intake: current Discharge Plan Discharge Plan Patient Disposition: Home Discharge orders & Medications Prescriptions: No Action No Known Home Medications Follow up/Referrals: Aj Hernández MD [Primary Care Provider] - Susan Viera MD [Non-Staff] - 1 Week (Obstructive uropathy acute kidney injury) Isrrael Goldstein MD [Physician] - 1 Week (Prostatism bladder outlet obstruction and obstructive uropathy) Diet/Activity/Treatments Diet comment: 2 g potassium restriction Catheter comment: Boswell catheter with leg bag indwelling Visit Report/Discharge Packet Instructions: How to Care for Your Boswell Catheter -- Male, Acute Kidney Injury Stand Alone Forms: Patient Portal/API Discharge Data Primary Care Provider: Aj Hernández Quality VTE Deep Vein Thrombosis/Pulmonary Embolism Present on Admission: No
[2024-07-20 08:46] LABS: BUN Creatinine Ratio 14.8 (6-22); Blood Urea Nitrogen 38 mg/dL (9-20); Carbon Dioxide 26 mmol/L (22-32); Chloride 104 mmol/L (98-107); Estimated Glomerular Filt Rate 27 mL/min (>60); Glucose 127 mg/dL (70-99); HEMOLYSIS < 15 (0-50); Potassium 4.3 mmol/L (3.4-5.1); Sodium 138 mmol/L (137-145)
--- NOTE | 2024-07-20 13:29 | CM.DPNOTE ---
DCP Note: Discharge orders placed for patient. Per RN, pt not able to obtain ferry reservation back to [place] (residence). Pt would benefit from ferry priority boarding due to leg bag. DCP completed [facility] Preferential Boarding form online and printed copy authorization letter for patient. WENDY TsaiSW
--- NOTE | 2024-07-20 14:39 | PC.NURSE ---
07/20/24 13:27 - Nurse Note by Sunita Ritchie RN PIV removed, cathether tip intact and pt tolerated well, applied gauze + bandaid. Provided pt education on Boswell/leg bag bag use and maintenance, referrals, signs and symptoms of infection, and K+ restriction. Pt stated all questions answered. All belongings including Boswell leg bag with pt. No meds in pt drawer, no belongings in safe or pharmacy. SHANTI Ling provided pt with [facility] medical pass. Pt escorted to POV via wheelchair by FREDDY Solis.
== END 2024-07-20 13:33 | disposition home or self-care (01) | DRG 683 ==
LOC: ED 16:19 → AC 17:50
PROVIDERS: Internal Medicine; Admitting Provider Hospitalist; Emergency Provider Emergency Medicine; PCP Family Medicine; Referring Provider Emergency Medicine; Visit Provider Hospitalist
DX: N17.9 Acute kidney failure, unspecified (principal); N13.8 Other obstructive and reflux uropathy; N40.1 Benign prostatic hyperplasia with lower urinary tract symptoms; I10 Essential (primary) hypertension; R51.9 Headache, unspecified; N39.498 Other specified urinary incontinence
CPT/HCPCS: 36415; 51702; 76770; 80048; 80053; 81001; 81003; 82570; 83690; 84156; 84300; 85025; 99284

== ENCOUNTER → 2024-09-04 08:03 | Outpatient (CLI) | payer BC, SELFPAY ==
[2024-07-15 18:20] VITALS: BMI 22.4
[2024-09-04 08:39] LABS: Appearance Urine UA TURBID; Bilirubin Urine UA NEGATIVE (NEGATIVE); Color Urine UA YELLOW; Glucose Urine UA NEGATIVE (Negative); Ketones Urine UA NEGATIVE (NEGATIVE); Leukocyte Esterase Urine UA 3+ (NEGATIVE); Nitrite Urine UA POSITIVE (Negative); Occult Blood Urine UA 2+ (Negative); Protein Urine UA TRACE (Negative); Specific Gravity Urine UA 1.010 (1.000-1.035); Urobilinogen Urine UA 0.2 E.U./dL (0.2); pH Urine UA 6.0 (4.5-8.0)
[2024-09-04 08:50] LABS: Culture Indicated Urine Specimen Cultured
== END ==
PROVIDERS: PCP Family Medicine; Visit Provider Urology
DX: R39.9 Unspecified symptoms and signs involving the genitourinary system (principal)
CPT/HCPCS: 81001; 87077; 87086

== ENCOUNTER → 2024-12-18 09:22 | Outpatient (CLI) | payer BC, SELFPAY ==
[2024-07-15 18:20] VITALS: BMI 22.4
== END ==
PROVIDERS: PCP Family Medicine; Visit Provider Urology
DX: N40.1 Benign prostatic hyperplasia with lower urinary tract symptoms (principal)
CPT/HCPCS: 87077; 87086